=== PATIENT | female | born 1990 | race Caucasian/White ===

== ENCOUNTER 2021-02-08 17:27 | Emergency (ER) | payer OTHER ==
[2021-02-08] MEDS ORDERED: IBUPROFEN800 MG PO (19:51)
== END 2021-02-08 20:17 | disposition home or self-care (01) ==
LOC: ER1 17:27
DX: S93.492A Sprain of other ligament of left ankle, initial encounter (principal); X50.1XXA Overexertion from prolonged static or awkward postures, initial encounter; Y92.830 Public park as the place of occurrence of the external cause
CPT/HCPCS: 73610; 99283